=== PATIENT | female | born 1995 | race Caucasian/White ===

== ENCOUNTER 2025-04-08 19:15 | Emergency (ER) | payer OTHER, SELFPAY ==
[2025-04-08 19:28] VITALS: BP 126/80
[2025-04-08 20:04] VITALS: BP 105/72
--- NOTE | 2025-04-08 20:15 | ED.GENMED ---
History of Present Illness
General
Chief Complaint: Chest Pain
Source: patient
Exam Limitations: none
Time Seen by Provider: 04/08/25 19:46
Nursing documentation reviewed up to this point in time: agreed with
History of Present Illness
History of Present Illness:
Note:
CHIEF COMPLAINT(S)
- Chest pain.
HISTORY OF PRESENT ILLNESS
The patient is a 29-year-old female with a prior history of gastroesophageal reflux disease (GERD), presenting with chest pain. The chest pain started after the last menstrual period and was accompanied by breast tenderness, which subsided, leaving
persistent chest pain. The pain is described as intermittent, located more on the right side, and fluctuates in intensity. It is currently mild at a level of two out of ten but has been more severe, reaching a six out of ten,took Pepcid and the pain
got worse. The patient denies significant shortness of breath, noting no limitation during physical activity such as climbing stairs.
The patient has a history of GERD that flared in October and calmed with dietary adjustments. She reports health anxiety, which previously accompanied similar GERD flare-ups. Last week, the patient had concerns over breast pain, which transitioned
to the current chest pain. There is no history of cardiac issues. The patient denies allergies to any medications.
CHRONIC MEDICAL CONDITIONS SIGNIFICANTLY AFFECTING CARE
- GERD.
SOCIAL DETERMINANTS AFFECTING HEALTH
- Reports health anxiety.
- The patient is currently looking for a primary care physician.
Boyfriend at bedside giving emotional support
SOCIAL HISTORY
- Drinks alcohol twice per month.
- Does not smoke.
REVIEW OF SYSTEMS
- Gastrointestinal: Reports history of GERD.
- Respiratory: Mild shortness of breath noted but not worsened by exertion.
PLAN
- Perform blood work including a troponin test to rule out cardiac causes.
- Prescribe Protonix (pantoprazole), 40 mg daily for a week for GERD.
- Referral to a bar pointer for further evaluation.
- Facilitate contact for the patient to establish a primary care physician as well as [employer]
- Discuss potential referral to a mental health professional to manage health anxiety.
DIFFERENTIAL DIAGNOSIS
The Differential Diagnosis includes, in no particular order and is not limited to:
1. Gastroesophageal reflux disease (GERD).
2. Costochondritis.
3. Anxiety-related conditions.
4. Musculoskeletal chest pain.
7. Mitral valve prolapse.
8. Esophageal spasm.
Phy Exam
Physical Exam
Physical Exam:
GENERAL: No acute distress. A&Ox3.
CONSTITUTIONAL: Afebrile.
EYES: clear, conjunctivae normal
ENMT: moist mucus membranes, Pharynx nl
RESPIRATORY: Regular respirations, nonlabored, lungs clear.
CARDIOVASCULAR: Regular rate and rhythm, no murmurs, no rubs.
GI: Soft, nontender, normal BS
Breast exam: normal
MUSCULOSKELETAL: Moves with ease. Well perfused.
SKIN: Warm, dry, pink
PSYCH: Normal mood and affect. Well kept, interactive and appropriate
NEUROLOGIC: Awake, alert and oriented. No focal neurological deficits
Scores
Heart Score for Chest Pain Patients
STEMI patient?: Not applicable
Course
Orders/Labs/Results
Orders:
Orders
04/08/25 19:16
EKG [Electrocardiogram (*1)] Urgent
Reason for Study: Chest Pain
EKG- Treatment ONCE
04/08/25 19:35
Test Result ONCE
04/08/25 20:07
Complete Blood Count/With Diff Urgent
Comprehensive Metabolic Panel Urgent
HCG, Serum Qualitative Screen Urgent
Troponin I Urgent
04/08/25 20:15
Pantoprazole [Protonix] 40 mg PO NOW STA
Abnormal Lab Results
04/08/25
20:07
WBC 11.6 H 10^3/uL
(4.8-10.8)
MCH 31.4 H pg
(27.0-31.0)
Absolute Neuts (auto) 8.4 H 10^3/uL
(1.4-6.5)
Glucose 112 H mg/dl
(70-99)
Calcium 10.7 H mg/dl
(8.4-10.2)
Alkaline Phosphatase 33 L U/L
(38-126)
Albumin 5.3 H g/dl
(3.5-5.0)
04/08/25 20:07
04/08/25 20:07
Vital Signs
Initial and Last Documented VS:
Initial Vital Signs
Temp Pulse Resp BP Pulse Ox
98.1 F 77 20 126/80 99
04/08/25 19:28 04/08/25 19:28 04/08/25 19:28 04/08/25 19:28 04/08/25 19:28
Last Documented Vital Signs
Temp Pulse Resp BP Pulse Ox
98.1 F 65 9 105/72 99
04/08/25 19:28 04/08/25 21:30 04/08/25 21:30 04/08/25 20:04 04/08/25 19:28
MDM/Problems Addressed
MDM/Problems Addressed:
CBC, CMP with no clinically significant abnormality.
hCG negative
Troponin normal
EKG NSR
Patient reassured her breast exam is normal
She admits to being anxious about her health and feels that when she got her period last week her breast became tender which triggered her to think there was something wrong with her breast which in turn triggered her chest pain and anxiety
Nothing worrisome in today's exam and workup
*EKG
EKG Intrepretation Date: 04/01/25
Interpretation: normal
Heart Rate: 69
Rate: normal
Rhythm: sinus
[place]: normal axis
Interval: normal interval
QRS Pattern: normal QRS
Ischemia: no ischemia
*Critical Care Note
Total Time (30-74mins, 75-104mins- exclusive of procedures): Not Applicable
ED Attending Note
-
Portions of this chart may have been created with voice recognition software.� Occasional wrong word or��sound alike� substitutions may have occurred due to the inherent limitations of voice recognition software.
Discharge Plan
Departure
Patient Disposition: Home (Routine Discharge)
Date of Disposition: 04/08/25
Time of Disposition: 21:45
Patient with high blood pressure during this ER visit?: No
Condition: Good
Discharge Problem:
Atypical chest pain
Instructions: Chest Pain That Is Not Caused by the Heart (DC), Acid reflux and GERD in adults
Prescriptions:
New
pantoprazole [Protonix] 40 mg tablet,delayed release (DR/EC)
40 mg PO DAILY Qty: 30 0RF
Referrals:
Rasta Livingston MD [Active, Gastroenterology]
NONE,* [Family Provider, Internal Medicine]
Ruth Orozco MD [Active, Gynecology] - Next open appointment
Activity Restrictions/Additional Instructions:
As we discussed, nothing worrisome in your workup here today.
I sent a prescription to your pharmacy for Protonix to use for GERD.
Make an appoint with the GI doctor and let them know if it helps.
I sent your contact information to our primary care provider hotline, someone should contact you within the next couple of days for a PCP
I also provided you with name of [employer]ACHINE REPAIRER FYI
Your breast exam is normal.
Interventions
Interventions:
*Risk Screen - Suicide Last Done: 04/08/25 19:28
*General Assessment Last Done: 04/08/25 19:28
*Neglect/Abuse Screening Last Done: 04/08/25 19:28
*ED- Fall Risk Assessment Last Done: 04/08/25 19:28
*ED COVID-19 Vaccine History Last Done: 04/08/25 19:28
*Nursing Disposition Last Done: 04/08/25 22:11
ED- Cardiac Assessment Last Done: 04/08/25 19:50
Discharge Date and Time
Discharge Date/Time: 04/08/25 22:12
Print Language: MALAWIAN
[2025-04-08 20:22] LABS: % Basophils 0.3 % (0-2); % Eosinophils 0.6 % (0-6); % Immature Granulocytes 0.3 % (0-0.5); % Lymphocytes 21.4 % (20.5-51.1); % Monocytes 4.5 % (1.7-9.3); % Neutrophils 72.9 % (42.2-75.2); Absolute Eosinophils 0.1 10^3/uL (0-0.7); Absolute Lymphocytes 2.5 10^3/uL (1.2-3.4); Absolute Monocytes 0.5 10^3/uL (0.1-0.6); Absolute Neutrophils 8.4 10^3/uL (1.4-6.5); Hematocrit 42.8 % (37.0-47.0); Mean Corpuscular Hgb 31.4 pg (27.0-31.0); Mean Corpuscular Volume 89.7 fL (81.0-99.0); Mean Platelet Volume 9.5 fL (7.4-10.4); Nucleated Red Blood Cells % 0 %; Platelet Count 299 10^3/uL (130-400); Red Blood Cell Count 4.77 10^6/uL (4.20-5.40); Red Cell Dist. Width 12.5 % (11.5-14.5); White Blood Cell Count 11.6 10^3/uL (4.8-10.8)
[2025-04-08 20:31] LABS: HCG, Serum Qualitative Screen Negative
[2025-04-08 20:33] LABS: ALT (SGPT) 15 U/L (0-35); AST (SGOT) 19 U/L (14-36); Albumin 5.3 g/dl (3.5-5.0); Alkaline Phosphatase 33 U/L (38-126); Blood Urea Nitrogen 16 mg/dl (7-17); Calcium 10.7 mg/dl (8.4-10.2); Carbon Dioxide 27 mmol/L (22-30); Chloride 104 mmol/L (98-107); Glucose 112 mg/dl (70-99); Potassium 4.4 mmol/L (3.5-5.1); Sodium 140 mmol/L (135-145); Total Bilirubin 0.8 mg/dl (0.2-1.3); Total Protein 8.2 g/dl (6.3-8.2); eGFR > 60.00
[2025-04-08] MEDS: PROTONIX 40 MG PO (20:44)
[2025-04-08 20:45] LABS: Troponin I < 0.012 ng/ml
== END 2025-04-08 22:12 | disposition home or self-care (01) ==
LOC: EMR 19:15
PROVIDERS: EMERGENCY PHYSICIAN Emergency Medicine
DX: R07.89 Other chest pain (principal); K21.9 Gastro-esophageal reflux disease without esophagitis; F41.9 Anxiety disorder, unspecified; Z79.899 Other long term (current) drug therapy
CPT/HCPCS: 99283; 80053; 84484; 84703; 85025; 93005